=== PATIENT | female | born 2000 | race Caucasian/White ===

== ENCOUNTER 2018-03-19 17:29 | Emergency (ER) | payer OTHER ==
[~2018-03-19] VITALS: Ht 165.1 cm; Wt 83.5 kg
[~2018-03-19 17:29] MED LIST: CLX20 PO; LOESTRIN
[2018-03-19 17:35] VITALS: BP 123/83; PULSE 98; TEMP 36.6; O2SAT 97; Ht 165.1 cm; Wt 83.5 kg
--- NOTE | 2018-03-19 20:34 | EMERGENCY ROOM VISIT NOTE ---
History Report prepared by Brianne: Mina Cheng Under the Supervision of: Dr. Michael Villa M.D. First contact with patient: 17:33 Chief Complaint: OTHER COMPLAINT Stated Complaint: CHILD History of Present Illness The patient is a 18 year old female who presents to the Emergency Room via ALS 37 weeks and in labor. EMS state that they found the patient laying back in her car diaphoretic. EMS state the patient was hypotensive and tachycardic. She is complaining of lower abdominal pain and lower back pain. Her contractions are about 1 minute apart. This is the patient's first , which was unremarkable per patient and had prior USs and states no issues with or US. 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 A total of ten systems were reviewed and were otherwise negative. Past Medical & Surgical Medical Problems: (1) 36 weeks gestation of (2) Uterine contractions at greater than 20 weeks of gestation Social History Marital Status: single Housing Status: lives with family Occupation Status: student Current/Historical Medications Unable to Obtain Active Prescriptions or Reported Meds Allergies Coded Allergies: Ioversol (Verified Allergy, Intermediate, NAUSEA AND THROAT FELT TIGHT, 16/10) Morphine (Unverified Allergy, Mild, rash, 12/25/10) Physical Exam Vital Signs Date Time Temp Pulse Resp B/P (MAP) Pulse Ox O2 Delivery O2 Flow Rate FiO2 03/19/18 17:35 36.6 98 26 123/83 97 Room Air Physical Exam GENERAL: Awake, alert, mild distress HENT: Normocephalic, atraumatic. EYES: Normal conjunctiva. Sclera non-icteric. PERRL. No anisocoria. NECK: Supple. No nuchal rigidity. FROM. RESPIRATORY: CTAB, no rhonchi, wheezing, crackles CARDIAC: Tachycardic rate and regular, no MRG ABDOMEN: Fundal height is 15 cm above the umbilicus. : No evidence of child, no fluid or blood seen on external vaginal exam MSK: No chest wall TTP, no LE edema NEURO: GCS 15, CN 2-12 intact, moves all 4s on command SKIN: No rash or jaundice noted. Medical Decision & Procedures ED Course 1733: The patient was evaluated in room B1. A complete history and physical exam was performed. 173: L and D nurse has arrived. 173: L and D nurse states patient is about 3 cm dilated. She has time to go to the L and D floor. Medical Decision The patient is a 18 year old female who presents to the Emergency Room via ALS 37 weeks and in labor w/ uterine contractions occurring approximately every minute. Nursing notes reviewed. Ancillary studies and prior records reviewed. Differential diagnosis: Etiologies such as labor/delivery, diverticulitis, PUD, biliary pathology, UTI, pancreatitis, obstruction, mesenteric ischemia, aortic pathology, infections, inflammatory bowel disease, renal colic, as well as others were entertained. Patient was seen and evaluated bedside. The patient had been brought to the emergency department as there was concern of hypotension in the field. The patient did have an IV placed and IV fluids were started. At the bedside the patient was intermittently tachycardic as well as heart rate into the high 90s. Currently no hypotension. The patient is in mild distress and discomfort. The patient has been experiencing contractions about every minute. The patient is unsure as to whether she has had a gush of fluid. The L&D nurse was also present at the bedside who did check her cervix and stated the patient was approximately 3 cm dilated. Given that did not require further treatment in the emergency department the patient was cleared to proceed to labor and delivery for continued evaluation and treatment. I did call upstairs to labor and delivery and inform the upstairs team that the patient would be sent upstairs for further evaluation and treatment. They were aware and would receive the patient. Patient was admitted to the [facility]END[facility] service and was transported to labor and delivery. Medication Reconcilliation Current Medication List: was personally reviewed by me Blood Pressure Screening Patient's blood pressure: Normal blood pressure Impression Primary Impression: Uterine contractions at greater than 20 weeks of gestation Additional Impression: Scribe Attestation The scribe's documentation has been prepared under my direction and personally reviewed by me in its entirety. I confirm that the note above accurately reflects all work, treatment, procedures, and medical decision making performed by me. Departure Information Dispostion Other (L and D floor) Prescriptions Unable to Obtain Active Prescriptions or Reported Meds Referrals Yamini Ramsey D.O. (PCP) Patient Instructions My [facility] Problem Qualifiers Additional Impression: Weeks of gestation: 37 weeks Qualified Codes: Z3A.37 - 37 weeks gestation of
== END 2018-03-19 17:40 | disposition home or self-care (01) ==
LOC: EDBD 17:29 → C.EDB 17:31
DX: O60.03 Preterm labor without delivery, third trimester (principal); Z3A.37 37 weeks gestation of pregnancy; Z88.5 Allergy status to narcotic agent; Z91.041 Radiographic dye allergy status

== ENCOUNTER 2018-03-19 18:40 | Outpatient (CLI) | payer OTHER ==
[2018-03-19] MEDS ORDERED: LACTATED RINGER'S 1000ML 1,000 ML IV SCH (18:59)
[2018-03-19] MEDS ORDERED: ONDANSETRON INJ 2 MG/ML 2 ML VIAL IV PRN (19:00)
[2018-03-19 19:30] LABS: BASO % 0.2 %; BASO ABS # 0.03 K/uL (0-0.2); EOS % 0.3 %; EOS ABS # 0.05 K/uL (0-0.5); HEMATOCRIT 32.4 % (37-47); HEMOGLOBIN 11.3 g/dL (12.0-16.0); LYMPH % 5.4 %; LYMPH ABS # 0.97 K/uL (1.2-3.4); MEAN CELL VOLUME 83.9 fL (80-100); MEAN CORPUSCULAR HEMOGLOBIN 29.3 pg (25-34); MEAN CORPUSCULAR HGB CONC 34.9 g/dl (32-36); MEAN PLATELET VOLUME 8.9 fL (7.4-10.4); MONO % 5.8 %; MONO ABS # 1.05 K/uL (0.11-0.59); NEUT % 86.1 %; NEUT ABS # 15.52 K/uL (1.4-6.5); PLATELET COUNT 260 K/uL (130-400); RED CELL DISTRIBUTION WIDTH CV 13.4 % (11.5-14.5); RED CELL DISTRIBUTION WIDTH SD 40.4 fL (36.4-46.3); WHITE BLOOD COUNT 18.02 K/uL (4.8-10.8)
[2018-03-19] MEDS ORDERED: BISACODYL 10 MG SUPP PR STA (20:13)
[2018-03-19] MEDS ORDERED: ACETAMINOPHEN 325 MG TAB PO STA (21:01)
[2018-03-19] MEDS ORDERED: ACETAMINOPHEN 325 MG TAB ONE (21:08)
== END 2018-03-19 23:18 | disposition home or self-care (01) ==
LOC: C.OPB 18:40 → C.LD 18:40 → C.OPB 23:18
PROVIDERS: ATTEND Obstetrics & Gynecology
DX: O62.9 Abnormality of forces of labor, unspecified (principal); Z3A.36 36 weeks gestation of pregnancy